=== PATIENT | male | born 1955 | race African-American/Black ===

== ENCOUNTER 2021-08-16 08:16 | Emergency (ER) | payer MEDICARE, MEDICAID ==
[~2021-08-16] VITALS: Ht 185.4 cm; Wt 75.0 kg
[2021-08-16] MEDS ORDERED: ASPIRIN 81MG TABLET PO ONE (10:00)
[2021-08-16 10:10] LABS: HEMATOCRIT. 43.2 % (42.0-52.0); HEMOGLOBIN. 14.6 g/dL (14.0-18.0); MEAN CORPUSCULAR HEMOGLOBIN 32.5 pg (28.0-32.0); MEAN CORPUSCULAR VOLUME 95.8 fL (80.0-94.0); MEAN PLATELET VOLUME 8.6 fl (7.4-10.4); PLATELET 222 x1000/uL (130-400); RED BLOOD CELL COUNT 4.51 mill/uL (4.7-6.1); RED CELL DISTRIBUTION WIDTH 13.6 % (11.6-14.6)
[2021-08-16 10:14] LABS: CHLORIDE 111 mEq/L (98-107)
[2021-08-16 10:53] LABS: PLATELET ESTIMATE NORMAL
[2021-08-16 13:08] VITALS: BP 152/76
== END 2021-08-16 13:14 | disposition home or self-care (01) ==
LOC: ER 08:16 → EDSEX 08:16 → ER 13:14 → CANBEDREQ 17:40
DX: R07.2 Precordial pain (principal); G89.11 Acute pain due to trauma; V49.49XA Driver injured in collision with other motor vehicles in traffic accident, initial encounter; Y93.89 Activity, other specified; Y92.488 Other paved roadways as the place of occurrence of the external cause; Z95.0 Presence of cardiac pacemaker
CPT/HCPCS: 36415; 71045; 80053; 83880; 84484; 85025; 99284

== ENCOUNTER 2022-06-13 05:44 | Emergency (ER) | payer MEDICARE, MEDICAID ==
[~2022-06-13] VITALS: Ht 193 cm; Wt 118.1 kg
[2022-06-13 05:57] VITALS: BP 156/94
[2022-06-13] MEDS ORDERED: ACETAMINOPHEN 325MG TABLET PO ONE (07:15)
[2022-06-13] MEDS ORDERED: P20 MT (09:48)
[2022-06-13] MEDS ORDERED: IBUP-2029 MT (09:48)
[2022-06-13] MEDS ORDERED: COLC0.6C3 MT (09:48)
[2022-06-13] MEDS ORDERED: COLCHICINE 0.6MG TABLET PO ONE (10:00)
== END 2022-06-13 11:40 | disposition home or self-care (01) ==
LOC: ER 05:44
DX: M10.9 Gout, unspecified (principal); I10 Essential (primary) hypertension; Z87.828 Personal history of other (healed) physical injury and trauma; Z87.81 Personal history of (healed) traumatic fracture
CPT/HCPCS: 36415; 73630; 84550; 93971; 99285